=== PATIENT | female | born 1980 ===

== ENCOUNTER 2019-02-04 11:30 | Inpatient (IN) | payer OTHER ==
[~2019-02-04] VITALS: Ht 170.2 cm; Wt 64.4 kg
== END 2019-02-10 08:57 | disposition home or self-care (01) | DRG 743 ==
LOC: O/R 11:30 → SURG 02-09 07:00 → OB/GYN 02-09 11:36
PROVIDERS: ADMIT Obstetrics & Gynecology Gynecology
PROC: 0UT7FZZ Resection of Bilateral Fallopian Tubes, Via Natural or Artificial Opening With Percutaneous Endoscopic Assistance (ICD-10-PCS; 2019-02-09)
PROC: 0UT9FZZ Resection of Uterus, Via Natural or Artificial Opening With Percutaneous Endoscopic Assistance (ICD-10-PCS; principal; 2019-02-09 07:00)
DX: D25.1 Intramural leiomyoma of uterus (principal); D25.0 Submucous leiomyoma of uterus; N72 Inflammatory disease of cervix uteri; N83.8 Other noninflammatory disorders of ovary, fallopian tube and broad ligament; N92.0 Excessive and frequent menstruation with regular cycle